=== PATIENT | female | born 1960 | race Caucasian/White ===

== ENCOUNTER 2019-02-02 21:05 | Observation (INO) ==
[2019-02-02] MEDS ORDERED: *HR* Heparin 5,000 UNIT/ML VIAL IVP PRN ×4 (22:13→23:51)
[2019-02-02] MEDS ORDERED: *HR* Heparin 5,000 UNIT/ML VIAL IVP ONE ×2 (22:13→23:51)
[2019-02-02] MEDS ORDERED: Heparin 25,000 UNIT/250 ML D5W 25,000 UNIT/250 ML IV.SOLN IVC SCH ×2 (22:15→23:45)
--- NOTE | 2019-02-02 22:16 | Emergency Department Note ---
Disposition Clinical Impression: Left leg DVT Qualifiers: Affected thrombotic vein of extremity: femoral Chronicity: acute Qualified Code(s): I82.412 - Acute embolism and thrombosis of left femoral vein Disposition: Admitted As Inpatient Referrals: Callum Ronquillo DO [Primary Care Provider] - Forms: ED Satisfaction Letter Time of Disposition: 23:52 General Adult HPI - General Chief complaint: ED Extremity Problem,Nontraumatic Stated complaint: L leg swelling Source: patient Mode of arrival: private vehicle Limitations: no limitations Nursing Notes Reviewed: Yes Vital Signs Reviewed: Yes - History of Present Illness HPI Narrative: Patient is a 59-year-old female with a past medical history including DVT, not currently on anticoagulation presenting with left lower extremity pain and swelling. The patient states for the past 2 weeks, she complains of increased swelling of her left thigh. In the last several days, she states the swelling has been worsening and she has burning and sharp pain from her thigh into her left calf. Pain is constant. She does not know why she gets DVTs. Patient nataly es any chest pain, shortness of breath, abdominal pain, nausea or vomiting, fevers or chills. Denies weakness or numbness or chilling. Pain Scale: 10 - Related Data Previous Rx's Medication Instructions Recorded Metoclopramide [Reglan] 10 mg PO Q6HR PRN #10 tablet 11/22/16 Esomeprazole Magnesium [Nexium] 20 mg PO DAILY #30 capsule. 12/04/17 Venlafaxine HCl [Venlafaxine HCl 75 mg PO DAILY #30 cap 03/21/18 ER] Allergies Allergy/AdvReac Type Severity Reaction Status Date / Time aspirin AdvReac Gastrointestinal Verified 03/21/18 21:12 Upset Cefaclor [From Ceclor] AdvReac Gastrointestinal Verified 03/21/18 21:12 Upset cephalexin [From Keflex] AdvReac Gastrointestinal Verified 03/21/18 21:12 Upset codeine AdvReac Vomiting Verified 03/21/18 21:12 nitrofurantoin AdvReac Gastrointestinal Verified 03/21/18 21:12 Upset prednisone AdvReac Gastrointestinal Verified 03/21/18 21:12 Upset tramadol AdvReac Gastrointestinal Verified 03/21/18 21:12 Upset All systems ED: reviewed and negative except as stated. Review of Systems: As Per HPI Constitutional: Denies: fever, chills ENT ED: Denies: congestion Cardiovascular: Reports: edema. Denies: chest pain, palpitations Respiratory: Denies: cough, dyspnea Gastrointestinal: Denies: abdominal pain, nausea, vomiting Genitourinary: Denies: dysuria Neurological: Denies: headache, weakness, numbness, paresthesias Past Medical History - Past Medical History Attestation: Yes The following information was validated with the patient. Source: patient Medical history: Reports: asthma, DVT, GERD Surgical history: Reports: cholecystectomy, hysterectomy Psychiatric history: Reports: anxiety - Social History Smoking Status: Current every day smoker Smokeless Tobacco Status: No Alcohol use: Reports: none Drug use: Reports: marijuana Physical Exam - General Limitations: no limitations General appearance: alert, in no apparent distress - Head Head exam: atraumatic, normocephalic, normal inspection - Eye Eye exam: Present: normal appearance, EOMI - ENT ENT exam: normal exam, normal oropharynx - Neck Neck exam: Present: normal inspection, trachea midline - Chest Chest inspection: Present: normal inspection, symmetric chest wall rise - Respiratory Respiratory exam: Present: normal lung sounds bilaterally. Absent: respiratory distress, wheezes - Cardiovascular Cardiovascular exam: Present: regular rate, normal rhythm, normal heart sounds - Abdominal Exam Abdominal exam: Present: soft, Non-Tender. Absent: distention - Extremities Exam Extremities exam: Present: normal capillary refill, other (Left thigh swelling, left thigh tenderness to palpation left calf tenderness to palpation, bilateral dorsalis pedis pulses are equal, normal temperature and color bilaterally) - Neurological Exam Neurological exam: Present: alert, oriented X3. Absent: motor sensory deficit - Psychiatric Psychiatric exam: Present: normal affect, normal mood - Skin Skin exam: Present: warm, dry Course Vital Signs Temperature 97.9 F 02/02/19 21:07 Pulse Rate 80 02/02/19 21:07 Respiratory Rate 20 02/02/19 21:07 Blood Pressure 150/76 02/02/19 21:07 O2 Sat by Pulse Oximetry 97 02/02/19 21:07 Temperature 97.9 F 02/02/19 21:07 Pulse Rate 80 02/02/19 21:07 Respiratory Rate 20 02/02/19 21:07 Blood Pressure 150/76 02/02/19 21:07 O2 Sat by Pulse Oximetry 97 02/02/19 21:07 Oxygen Delivery Oxygen Delivery Room Air Medical Decision Making - MDM Narrative Medical decision making narrative: Patient is presenting with left lower extremity pain and swelling. There is tender to palpation in concerning for left lower extremity DVT. No evidence of cellulitis. Afebrile and vitals within normal limits. Patient does have a history of prior DVT and currently not on anticoagulation. She is receiving a Doppler ultrasound at this time. 22:30 Ultrasound is positive for left lower extremity DVT involving the femoral vein. We will start heparin. Lab work has been ordered. Hospitalist paged for admission. X-ray knee also shows joint effusion but no fracture or dislocation. Patient has poor outpatient followup. 23:[address] Duque, hospitalist who accepts admission. - Medical Records Medical records reviewed: Yes I reviewed the patient's medical records. - Lab Data Lab results reviewed: Yes I reviewed the patient's lab results. Result diagrams: 02/02/19 22:56 02/02/19 22:56 Lab Results 02/02/19 02/02/19 02/02/19 Range/Units 22:56 22:56 22:56 WBC 8.5 (4.3-11.1) K/mcL RBC 3.92 (3.82-4.97) M/mcL Hgb 12.6 (11.5-15.4) g/dL Hct 38.1 (35.3-44.9) % MCV 97.2 (83.0-100.0) fL MCH 32.1 (28.0-33.3) pg MCHC 33.1 (31.6-35.5) g/dL RDW 12.8 (11.5-14.5) % Plt Count 187 (140-400) K/mcL MPV 12.5 H (9.4-12.4) fL Immature Gran % 0.2 (0-4) % Seg Neutrophils % 46.6 % Lymphocytes % 39.0 % Monocytes % 11.9 % Eosinophils % 1.6 % Basophils % 0.7 % Neutrophils # 4.0 (1.6-8.9) K/mcL Lymphocytes # 3.3 (0.6-4.6) K/mcL Monocytes # 1.0 (0.0-1.3) K/mcL Eosinophils # 0.1 (0.0-0.6) K/mcL Basophils # 0.1 (0.0-0.2) K/mcL PT 10.6 (9.4-12.1) Seconds INR 0.9 APTT 31.8 (26.0-36.0) Seconds Heparin Anti-Xa, Unfract 0.03 L (0.30-0.70) IU/mL Sodium 136 (136-145) mEq/L Potassium 4.1 (3.5-5.1) mEq/L Chloride 106 (98-107) mEq/L Carbon Dioxide 24 (23-29) mEq/L BUN 16 (6-20) mg/dL Creatinine 1.08 (0.60-1.20) mg/dL Est GFR ( Amer) > 60 (> 60) Est GFR (Non-Af Amer) 52 L (> 60) BUN/Creatinine Ratio 15 (6-26) Glucose 67 L (70-105) mg/dL Calculated Osmolality 281 (280-300) Calcium 9.1 (8.6-10.3) mg/dL Total Bilirubin 0.4 (0.3-1.0) mg/dL AST 24 (13-39) Units/L ALT 18 (7-52) Units/L Alkaline Phosphatase 53 (34-104) Units/L Serum Total Protein 6.9 (6.4-8.9) g/dL Albumin 3.9 (3.5-5.7) g/dL Globulin 3.0 (2.4-3.5) g/dL Albumin/Globulin Ratio 1.3 (1.1-2.2) - Radiology Data Radiology results reviewed: Yes I reviewed the patient's radiology results. Knee X-Ray 02/02/19 21:10 IMPRESSION: 1. Joint effusion 2. No acute bony abnormality 3. Tricompartmental osteoarthritic changes D/ / Zev Damian MD / Zev Damian MD Interpreting Provider: Zev Damian MD
[2019-02-02] MEDS ORDERED: *HR* LORazepam 2 MG/ML VIAL IVP ONE (22:49)
[2019-02-02] MEDS ORDERED: Nicotine 21 MG PATCH.TD24 TD SCH (23:00)
--- NOTE | 2019-02-02 23:00 | Emergency Department Note ---
Disposition Clinical Impression: Left leg DVT Qualifiers: Affected thrombotic vein of extremity: femoral Chronicity: acute Qualified Code(s): I82.412 - Acute embolism and thrombosis of left femoral vein Disposition: Admitted As Inpatient Condition: Good Referrals: Callum Ronquillo DO [Primary Care Provider] - Forms: ED Satisfaction Letter Time of Disposition: 23:00 General Adult HPI - General Chief complaint: ED Extremity Problem,Nontraumatic Stated complaint: L leg swelling Time Seen by Provider: 02/02/19 21:47 Source: patient Mode of arrival: private vehicle Limitations: no limitations - History of Present Illness Pain Scale: 10 - Related Data Previous Rx's Medication Instructions Recorded Metoclopramide [Reglan] 10 mg PO Q6HR PRN #10 tablet 11/22/16 Esomeprazole Magnesium [Nexium] 20 mg PO DAILY #30 capsule.dr 12/04/17 Venlafaxine HCl [Venlafaxine HCl 75 mg PO DAILY #30 cap 03/21/18 ER] Allergies Allergy/AdvReac Type Severity Reaction Status Date / Time aspirin AdvReac Gastrointestinal Verified 03/21/18 21:12 Upset Cefaclor [From Ceclor] AdvReac Gastrointestinal Verified 03/21/18 21:12 Upset cephalexin [From Keflex] AdvReac Gastrointestinal Verified 03/21/18 21:12 Upset codeine AdvReac Vomiting Verified 03/21/18 21:12 nitrofurantoin AdvReac Gastrointestinal Verified 03/21/18 21:12 Upset prednisone AdvReac Gastrointestinal Verified 03/21/18 21:12 Upset tramadol AdvReac Gastrointestinal Verified 03/21/18 21:12 Upset Constitutional: Denies: fever, chills ENT ED: Denies: congestion Cardiovascular: Reports: edema. Denies: chest pain, palpitations Respiratory: Denies: cough, dyspnea Gastrointestinal: Denies: abdominal pain, nausea, vomiting Genitourinary: Denies: dysuria Neurological: Denies: headache, weakness, numbness, paresthesias Past Medical History - Past Medical History Medical history: Reports: asthma, DVT, GERD Surgical history: Reports: cholecystectomy, hysterectomy Psychiatric history: Reports: anxiety - Social History Smoking Status: Current every day smoker Smokeless Tobacco Status: No Alcohol use: Reports: none Drug use: Reports: marijuana Physical Exam - General Limitations: no limitations General appearance: alert, in no apparent distress Course Vital Signs Temperature 97.9 F 02/02/19 21:07 Pulse Rate 80 02/02/19 21:07 Respiratory Rate 20 02/02/19 21:07 Blood Pressure 150/76 02/02/19 21:07 O2 Sat by Pulse Oximetry 97 02/02/19 21:07 Temperature 97.9 F 02/02/19 21:07 Pulse Rate 80 02/02/19 21:07 Respiratory Rate 20 02/02/19 21:07 Blood Pressure 150/76 02/02/19 21:07 O2 Sat by Pulse Oximetry 97 02/02/19 21:07 Oxygen Delivery Oxygen Delivery Room Air Attestation Statement - Attestation Attestation: I reviewed the residents documentation and agree with the residents assessment and plan of care. I have personally had face to face time with the patient. (Brief History, Brief Exam, and MDM) I personally supervised and was present for the ludwig/critical portions of the following procedures completed by the resident: (add procedures performed here). 59 year old female presents to the ED with complaints of Left leg swelling she has a history of DVTs and appears to have a partial left common femoral DVT. Heprin therapy started and will admit to medicine.
[2019-02-02 23:16] LABS: Basophils # 0.1 K/mcL (0.0-0.2); Basophils % 0.7 %; Eosinophils # 0.1 K/mcL (0.0-0.6); Eosinophils % 1.6 %; Hematocrit 38.1 % (35.3-44.9); Hemoglobin 12.6 g/dL (11.5-15.4); Immature Granulocytes % 0.2 % (0-4); Lymphocytes # 3.3 K/mcL (0.6-4.6); Mean Corpuscular HGB Conc 33.1 g/dL (31.6-35.5); Mean Corpuscular Hemoglobin 32.1 pg (28.0-33.3); Mean Corpuscular Volume 97.2 fL (83.0-100.0); Mean Platelet Volume 12.5 fL (9.4-12.4); Monocytes % 11.9 %; Platelet Count 187 K/mcL (140-400); Red Blood Count 3.92 M/mcL (3.82-4.97); Red Cell Distribution Width 12.8 % (11.5-14.5); Segmented Neutrophils % 46.6 %; White Blood Count 8.5 K/mcL (4.3-11.1)
[2019-02-02 23:28] LABS: Heparin anti-factor XA UFH 0.03 IU/mL (0.30-0.70); INR 0.9; Prothrombin Time 10.6 Seconds (9.4-12.1)
[2019-02-02 23:30] LABS: Activated Partial Thrombo Time 31.8 Seconds (26.0-36.0)
[2019-02-02] MEDS ORDERED: *HR* Enoxaparin 80 MG/0.8 ML SYRINGE SQ STA (23:34)
[2019-02-02 23:35] LABS: Alanine Aminotransferase 18 Units/L (7-52); Albumin 3.9 g/dL (3.5-5.7); Albumin/Globulin Ratio 1.3 (1.1-2.2); Alkaline Phosphatase 53 Units/L (34-104); Aspartate Amino Transferase 24 Units/L (13-39); BUN/Creatinine Ratio 15 (6-26); Bilirubin,Total 0.4 mg/dL (0.3-1.0); Blood Urea Nitrogen 16 mg/dL (6-20); Calcium 9.1 mg/dL (8.6-10.3); Carbon Dioxide 24 mEq/L (23-29); Chloride 106 mEq/L (98-107); Glucose 67 mg/dL (70-105); Osmolality,Calculated 281 (280-300); Potassium 4.1 mEq/L (3.5-5.1); Sodium 136 mEq/L (136-145); Total Protein 6.9 g/dL (6.4-8.9); eGFR For African Americans > 60 (> 60); eGFR For Non-African Americans 52 (> 60)
[2019-02-03] MEDS ORDERED: Acetaminophen 325 MG TABLET PO PRN (02:22)
[2019-02-03] MEDS ORDERED: Naloxone 0.4 MG/ML INJ IVP PRN (02:22)
[2019-02-03] MEDS ORDERED: Ondansetron 4 MG/2 ML VIAL IVP PRN (02:22)
[2019-02-03] MEDS ORDERED: traMADol 50 MG TABLET PO PRN (02:22)
--- NOTE | 2019-02-03 02:42 | Internal Med History&Physical ---
Date of Encounter: 02/03/19 Time of Encounter: 01:45 Internal Medicine - H&P: HPI Chief complaint: Left leg pain Admitted From: Emergency Dept Plans for Post Hospital Care: Home History of present illness: Ms. Cheung is a 59 year old female w/PMH of previous DVT, asthma, GERD, and anxiety presents from the ED w/CC of left leg pain. Patient reports that the pain started a couple weeks ago w/increasing swelling in her left thigh. Reports sharp, burning pain from thigh to her calf over the past 48 hours. Reports pain as constant. Aggravating factors: none. Alleviating factors: none. Patient denies hx of atrial fibrillation or being on any anticoagulants currently. Patient denies recent illness, fever, chills, nausea, vomiting, headache, changes in vision, unusual bleeding, chest pain, shortness of breath, abdominal pain, diarrhea, constipation, numbness, tingling, dizziness, lightheadedness, pre-syncope, or syncope. Past Med Surg Social Fam HX - Past Medical History Source: patient, old records reviewed Medical history: asthma, DVT, GERD Psychiatric history: anxiety - Past Surgical History Surgical History: cholecystectomy, hysterectomy - Social History Smoking Status: Current every day smoker Packs per day: 1 PPD Smokeless Tobacco Status: No Alcohol use: none Drug use: marijuana Current living situation: Home, With Family Activity Level: Independent ambulation Recent Out of Country Travel Within the Last 8 Weeks: No Exposure or Possible Exposure to Illness During Travel: No - Family History Father Race: Family Member Ethnicity: Non- Living Status: Still Living Hx Family Cardiac Disorders: Yes (CAD) Mother Race: Family Member Ethnicity: Non- Living Status: Still Living Hx Family Musculoskeletal Disorders: Yes (Back pain) Brother Race: Family Member Ethnicity: Non- Living Status: Age at : 26 Cause of : MVA Sister Race: Family Member Ethnicity: Non- Living Status: Still Living Hx Family Endocrine Disorder: Yes (DM) Internal Medicine - H&P: Meds Esomeprazole Magnesium [Nexium] 20 mg PO DAILY #30 capsule. 12/04/17 [Rx] Venlafaxine HCl [Venlafaxine HCl ER] 75 mg PO DAILY #30 cap 03/21/18 [Rx] Benzonatate 100 mg PO TID 02/02/19 [History] Estrogens, Conjugated [Premarin] 1.25 mg PO DAILY 02/02/19 [History] LORazepam [Ativan] 1 mg PO BID 02/02/19 [History] Montelukast Sodium [Singulair] 10 mg PO DAILY 02/02/19 [History] Nizatidine 150 mg PO DAILY 02/02/19 [History] Pantoprazole Sodium 40 mg PO DAILY 02/02/19 [History] Tizanidine HCl [Zanaflex] 4 mg PO BID 02/02/19 [History] Allergy/AdvReac Type Severity Reaction Status Date / Time aspirin AdvReac Gastrointestinal Verified 03/21/18 21:12 Upset Cefaclor [From Ceclor] AdvReac Gastrointestinal Verified 03/21/18 21:12 Upset cephalexin [From Keflex] AdvReac Gastrointestinal Verified 03/21/18 21:12 Upset codeine AdvReac Vomiting Verified 03/21/18 21:12 nitrofurantoin AdvReac Gastrointestinal Verified 03/21/18 21:12 Upset prednisone AdvReac Gastrointestinal Verified 03/21/18 21:12 Upset tramadol AdvReac Gastrointestinal Verified 03/21/18 21:12 Upset All Systems PM: A 10-system review of systems was performed and is negative for pertinent findings except as documented above in the HPI. - Constitutional Constitutional: no chills, no fever(s), no night sweats - EENT Eyes: no change in vision, no discharge, no pain, no photophobia Ears: no ear discharge, no ear pain, no tinnitus Nose, mouth and throat: no dysphagia, no nasal discharge, no neck pain, no sore throat - Breasts Breasts: as per HPI - Cardiovascular Cardiovascular ROS IM: no chest pain, no diaphoresis, no dyspnea, no lightheadedness, no palpitations, no syncope - Respiratory Respiratory: no cough, no dyspnea, no wheezing, no excessive phlegm production - Gastrointestinal Gastrointestinal: as per HPI, heartburn, no abdominal pain, no diarrhea, no hematemesis, no hematochezia, no melena, no nausea, no vomiting - Genitourinary Genitourinary: no change in urinary stream, no dysuria, no flank pain, no hematuria Menstruation: as per HPI, post hysterectomy - Musculoskeletal Musculoskeletal ROS IM: as per HPI, other (LLE pain from thigh to calf), no numb ness, no tingling - Integumentary Integumentary IM: no rash, no unusual bruising - Neurological Neurological ROS: no confusion, no convulsions, no focal weakness, no numbness, no tingling, no tremor(s) - Psychiatric Psychiatric: as per HPI, anxiety - Endocrine Endocrine IM: as per HPI - Hematologic/Lymphatic Hematologic/Lymphatic: no easy bruising - Allergic/Immunologic Allergic/Immunologic: as per HPI - Constitutional Vitals: Temp Pulse Resp BP Pulse Ox 97.7 F 64 20 122/76 100 02/03/19 00:49 02/03/19 00:49 02/03/19 00:49 02/03/19 00:49 02/03/19 00:49 General appearance: Present: cooperative, mild distress (Pain in LLE), A&O X 3, pleasant, answers questions appropriately Exam: Patient examined at bedside. Reports pain in LLE from thigh to calf. Denies any other sx or complaints on examination. VS: 97.7F temp, HR 64, RR 20, BP 122/76, SPO2 100% on room air. - Head Head exam: Present: atraumatic, normocephalic - Eye Eye exam: Present: PERRL, conjuntiva pink, sclera anicteric Pupils: Present: PERRL - ENT ENT exam: Present: normal exam - Neck Neck exam general surgery: Present: normal inspection, supple, trachea midline. Absent: lymphadenopathy - Respiratory Respiratory exam: Present: CTAB. Absent: accessory muscle use, rales, rhonchi, wheezes - Cardiovascular Cardiovascular exam: Present: RRR, +S1, +S2. Absent: diastolic murmur, gallop, rubs, systolic murmur - GI/Abdominal GI/Abdominal exam: Present: normal bowel sounds, soft, no peritoneal signs. Absent: distended, tenderness - Rectal Rectal exam: Present: deferred - Additional comments: exam deferred. - Extremities Exam Extremities exam: Present: calf tenderness (LLE), tenderness (LLE), warm, radial pulses palpable and symmetrical. Absent: cyanotic, pedal edema - Back Exam Back exam: Present: normal inspection - Neurological Exam Neurological exam: Present: alert, CN II-XII intact, oriented X3, no focal deficits. Absent: pronater drift, facial droop, speech deficit - Psychiatric Psychiatric exam: Present: anxious - Skin Skin exam: Present: dry, intact Internal Med - H&P Results - Labs CBC & Chem 7: 02/02/19 22:56 02/02/19 22:56 Labs: Short CBC 02/02/19 Range/Units 22:56 WBC 8.5 (4.3-11.1) K/mcL Hgb 12.6 (11.5-15.4) g/dL Hct 38.1 (35.3-44.9) % Plt Count 187 (140-400) K/mcL Neutrophils # 4.0 (1.6-8.9) K/mcL BMP 02/02/19 22:56 Sodium 136 Potassium 4.1 Chloride 106 Carbon Dioxide 24 BUN 16 Creatinine 1.08 Glucose 67 L Calcium 9.1 Liver Function 02/02/19 Range/Units 22:56 Total Bilirubin 0.4 (0.3-1.0) mg/dL AST 24 (13-39) Units/L ALT 18 (7-52) Units/L Alkaline Phosphatase 53 (34-104) Units/L Albumin 3.9 (3.5-5.7) g/dL - Impressions ITS Impressions Knee X-Ray 02/02/19 21:10 IMPRESSION: 1. Joint effusion 2. No acute bony abnormality 3. Tricompartmental osteoarthritic changes D/ / Zev Damian MD / Zev Damian MD Interpreting Provider: Zev Damian MD - Diagnostic Studies Other Images Additional comments: Impressions Knee X-Ray 02/02/19 21:10 IMPRESSION: 1. Joint effusion 2. No acute bony abnormality 3. Tricompartmental osteoarthritic changes D/ / Zev Damian MD / Zev Damian MD Interpreting Provider: Zev Damian MD Venous US Additional comments: Impressions Татьяна Cheung A Female : 1960 MedRec# [id number] 02/02/19 22:07 - Vascular Preliminary by MargaretXiangLarissa K Acct Num: [id number] : 1960 Patient Age: 59 Venous Duplex Lower Left Extremity Patient appears to be positive for partial DVT and negative for SVT. Initialized on 02/02/19 22:07 - END OF NOTE - Assessment and Plan (1) Left leg DVT Current Visit: Yes Status: Acute Assessment and plan: Acute left leg DVT. Patient reports that the pain started a couple weeks ago w/increasing swelling in her left thigh. Reports sharp, burning pain from thigh to her calf over the past 48 hours. Reports pain as constant. Aggravating factors: none. Alleviating factors: none. Patient denies hx of atrial fibrillation or being on any anticoagulants currently. Hx of previous DVT. No hx of clotting disorders. Vascular US shows positive for partial DVT and negative for SVT and LLE. Patient given weight-based Lovenox in ED. Weight-based Lovenox ordered Q12HR. Discussed patient w/Higinio in Pharmacy d/t current renal dysfunction for renal adjustments on Lovenox of which there are none currently. Consult to Hematology Oncology ordered but not confirmed d/t time of night placed. A.M. Hospitalist to follow-up and confirm consult. Heparin anti-factor XA ordered. Factor V Leiden ordered. Patient is high risk for further morbidity and complication d/t current DVT in left femoral vein requiring urgent anticoagulation and monitoring, hx of previous DVT, current tobacco abuse, and risk factors. Observation. Qualifiers: Affected thrombotic vein of extremity: femoral Chronicity: acute Qualified Code(s): I82.412 - Acute embolism and thrombosis of left femoral vein (2) Asthma Current Visit: Yes Status: Chronic Assessment and plan: Hx of chronic asthma. Continue pts. Singulair. Supplemental O2 w/titration and SpO2 monitoring PRN. Qualifiers: Asthma severity: mild Asthma persistence: intermittent Asthma complication type: uncomplicated Qualified Code(s): J45.20 - Mild intermittent asthma, uncomplicated (3) GERD (gastroesophageal reflux disease) Current Visit: Yes Status: Chronic Assessment and plan: Hx of chronic GERD. Ranitidine 75 mg by mouth twice a day. Zofran 4 mg IVP every 8 when necessary for nausea vomiting. Qualifiers: Esophagitis presence: esophagitis presence not specified Qualified Code(s): K21.9 - Gastro-esophageal reflux disease without esophagitis (4) Tobacco abuse Current Visit: Yes Status: Chronic Assessment and plan: Hx of chronic tobacco abuse. Patient reports smoking 1 PPD. Pt. counseled on smoking cessation. 21 mg nicotine patch ordered. (5) Tobacco abuse counseling Current Visit: Yes Status: Acute Assessment and plan: Patient counseled on importance of smoking cessation and benefits regarding her current vascular compromise >10 minutes. Patient requests 21 mg nicotine patch. (6) DVT prophylaxis Current Visit: Yes Status: Acute Assessment and plan: Weight-based Lovenox Q12HR for current DVT in LLE. Check Xa factor. Monitor pt. for signs of bleeding. - Time Spent With Patient Total time spent is greater than 50% in coordination of care (as documented) at patient's floor/unit and/or counseling patient: Greater than 35 minutes
[2019-02-03 03:20] LABS: Hemoglobin 12.8 g/dL (11.5-15.4); Mean Corpuscular HGB Conc 33.7 g/dL (31.6-35.5); Mean Corpuscular Hemoglobin 33.1 pg (28.0-33.3); Mean Corpuscular Volume 98.2 fL (83.0-100.0); Mean Platelet Volume 13.1 fL (9.4-12.4); Platelet Count 190 K/mcL (140-400); Red Blood Count 3.87 M/mcL (3.82-4.97); Red Cell Distribution Width 12.7 % (11.5-14.5)
[2019-02-03 03:41] LABS: BUN/Creatinine Ratio 15 (6-26); Blood Urea Nitrogen 15 mg/dL (6-20); Calcium 8.8 mg/dL (8.6-10.3); Carbon Dioxide 23 mEq/L (23-29); Chloride 105 mEq/L (98-107); Chol/HDL Ratio 4.6 (0-4.9); Cholesterol 269 mg/dL (< 200); Glucose 91 mg/dL (70-105); HDL Cholesterol 58 mg/dL (40-59); LDL Cholesterol,Calculated 193 mg/dL (0-99); Magnesium 2.2 mg/dL (1.6-2.6); Osmolality,Calculated 280 (280-300); Potassium 4.1 mEq/L (3.5-5.1); Sodium 135 mEq/L (136-145); Triglycerides 88 mg/dL (< 150); eGFR For African Americans > 60 (> 60); eGFR For Non-African Americans 55 (> 60)
[2019-02-03] MEDS ORDERED: Isovue-370 500 ML BOTTLE IVP ONE (07:59)
[2019-02-03] MEDS ORDERED: *HR* LORazepam 1 MG TABLET PO PRN (08:24)
[2019-02-03] MEDS ORDERED: tiZANidine 4 MG TABLET PO SCH (09:00)
[2019-02-03] MEDS ORDERED: Tiotropium 18 MCG inhalation IH SCH (10:00)
[2019-02-03] MEDS ORDERED: *HR* Enoxaparin 80 MG/0.8 ML SYRINGE SQ SCH (11:00)
[2019-02-03 14:12] VITALS: BP 114/71
--- NOTE | 2019-02-03 14:13 | Electrocardiograph Report ---
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
--- NOTE | 2019-02-03 14:25 | Discharge Summary ---
<Trina Leroy - Last Filed: 02/03/19 18:41> Orders not resulted at time of discharge: Pending orders 02/03/19 09:54 Factor V Leiden Routine 02/03/19 15:44 Cell Count w Diff,Synovial Fl [BF] Stat Culture,Body Fluid [RM] Stat Synovial Fluid Crystals [BF] Stat Date of Encounter: 02/03/19 - Discharge Diagnosis (1) Left leg DVT Status: Acute Qualifiers: Affected thrombotic vein of extremity: femoral Chronicity: acute Qualified Code(s): I82.412 - Acute embolism and thrombosis of left femoral vein (2) Asthma Status: Chronic Qualifiers: Asthma severity: mild Asthma persistence: intermittent Asthma complication type: uncomplicated Qualified Code(s): J45.20 - Mild intermittent asthma, uncomplicated (3) GERD (gastroesophageal reflux disease) Status: Chronic Qualifiers: Esophagitis presence: esophagitis presence not specified Qualified Code(s): K21.9 - Gastro-esophageal reflux disease without esophagitis (4) DVT prophylaxis Status: Acute (5) Tobacco abuse Status: Chronic (6) Tobacco abuse counseling Status: Acute Hospital course: Ms. Cheung is a 59 year old female - Time Spent with Patient Total time spent providing and/or coordinating discharge services: - Discharge Medications Prescriptions: New Apixaban [Eliquis] 5 mg PO BID #60 tablet Apixaban [Eliquis] 10 mg PO BID #14 tablet Continued RX: Esomeprazole Magnesium [Nexium] 20 mg PO DAILY #30 capsule. RX: Venlafaxine HCl [Venlafaxine HCl ER] 75 mg PO DAILY #30 cap RX: Tizanidine HCl [Zanaflex] 4 mg PO BID Benzonatate 100 mg PO TID Pantoprazole Sodium 40 mg PO DAILY RX: Montelukast Sodium [Singulair] 10 mg PO DAILY RX: Nizatidine 150 mg PO DAILY RX: LORazepam [Ativan] 1 mg PO BID Discontinued Estrogens, Conjugated [Premarin] 1.25 mg PO DAILY Home Medications: RX: Esomeprazole Magnesium [Nexium] 20 mg PO DAILY #30 capsule. 12/04/17 [Rx] RX: Venlafaxine HCl [Venlafaxine HCl ER] 75 mg PO DAILY #30 cap 03/21/18 [Rx] Benzonatate 100 mg PO TID 02/02/19 [History] Pantoprazole Sodium 40 mg PO DAILY 02/02/19 [History] RX: LORazepam [Ativan] 1 mg PO BID 02/02/19 [History] RX: Montelukast Sodium [Singulair] 10 mg PO DAILY 02/02/19 [History] RX: Nizatidine 150 mg PO DAILY 02/02/19 [History] RX: Tizanidine HCl [Zanaflex] 4 mg PO BID 02/02/19 [History] Apixaban [Eliquis] 5 mg PO BID #60 tablet 02/03/19 [Rx] Apixaban [Eliquis] 10 mg PO BID #14 tablet 02/03/19 [Rx] Allergies/Adverse Reactions: Allergy/AdvReac Type Severity Reaction Status Date / Time aspirin AdvReac Gastrointestinal Verified 03/21/18 21:12 Upset Cefaclor [From Ceclor] AdvReac Gastrointestinal Verified 03/21/18 21:12 Upset cephalexin [From Keflex] AdvReac Gastrointestinal Verified 03/21/18 21:12 Upset codeine AdvReac Vomiting Verified 03/21/18 21:12 nitrofurantoin AdvReac Gastrointestinal Verified 03/21/18 21:12 Upset prednisone AdvReac Gastrointestinal Verified 03/21/18 21:12 Upset tramadol AdvReac Gastrointestinal Verified 03/21/18 21:12 Upset Date of admission: 02/03/19 00:17 Primary care physician: Callum Ronquillo - Constitutional Vitals: Temp Pulse Resp BP Pulse Ox 97.6 F 61 15 114/71 99 02/03/19 14:07 02/03/19 14:07 02/03/19 14:07 02/03/19 14:07 02/03/19 14:07 - Patient Status Disposition: Home, Self-Care Condition: Fair - Discharge Instructions Follow Up With: Rae Duenas CNP [Advanced Practice Nurse] - 02/06/19 9:45 am - Attending Attestation I have seen and independently assessed this patient and I agree with plan as documented Exam Gen. NAD CVS. S1 S2 WNL Resp. CTAB GI. 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 GCS 15 Plan Acute DVT of lower extremity. CTA chest showed no PE. Started on sc lovenox. Transitioned to eliquis. Will complete eliquis 10mg po BID for 7 days and 5mg po BID subseqeuntly. Outpatient f/u with heme onc <uLcy Grove - Last Filed: 02/03/19 20:16> - NOTES TO OUTPATIENT PROVIDER Notes to Outpatient Provider: Patient admitted for left lower extremitiy partial DVT on doppler. Discontinued Premarin and recommended smoking cessation. Factor V Leiden ordered, not yet resulted. Started on Eliquis. LDL 193 recommend considering statin therapy. Follow up with PCP in 3-5 days to discuss anticoagulation duration and postmenopausal symtom managment. Orders not resulted at time of discharge: Pending orders 02/03/19 09:54 Factor V Leiden Routine 02/04/19 04:00 Basic Metabolic Panel AM 0400 Complete Blood Count w/o Diff [HEME] AM 0400 Date of Encounter: 02/03/19 Time of Encounter: 13:15 - Discharge Diagnosis (1) Left leg DVT Priority: Primary Status: Acute Qualifiers: Affected thrombotic vein of extremity: femoral Chronicity: acute Qualified Code(s): I82.412 - Acute embolism and thrombosis of left femoral vein (2) Asthma Priority: Secondary Status: Chronic Qualifiers: Asthma severity: mild Asthma persistence: intermittent Asthma complication type: uncomplicated Qualified Code(s): J45.20 - Mild intermittent asthma, uncomplicated (3) GERD (gastroesophageal reflux disease) Priority: Secondary Status: Chronic Qualifiers: Esophagitis presence: esophagitis presence not specified Qualified Code(s): K21.9 - Gastro-esophageal reflux disease without esophagitis (4) Tobacco abuse Priority: Secondary Status: Chronic Hospital course: Ms. Cheung is a 59 year old female with a history of previous DVT not on anticoagulation, hot flashes on Premarin, and current daily smoker who presented to the ED on 02/02/19 with complaint of left lower extremity pain and swelling for the past 2 weeks. Venous Doppler showed a partially occlusive thrombus in the left common femoral vein. CTA of chest showed no PE. Vitals were stable on presentation and throughout admission. CBC and CMP/BMP were unremarkable. Lipid panel with total cholesterol 269, LDL 193, HDL 58. Left knee x-ray showed joint effusion with tricompartmental osteoarthritic changes. Left knee arthrocentesis was performed today with removal of approximately 9 mL's of straw colored synovial fluid, fluid analysis and culture pending. Premarin was discontinued and smoking cessation recommended. Patient started on Eliquis on discharge. Patient to follow up with PCP to further discuss anticoagulation duration, postmenopausal symptom managment, and possible statin therapy. Discharge discussed with: patient, family Time spent discussing smoking cessation with patient: 3 to 10 minutes - Time Spent with Patient Total time spent providing and/or coordinating discharge services: Date of admission: 02/03/19 00:17 Primary care physician: Callum Ronquillo Discharging clinician: Lcuy Grove Anticipated date of discharge: 02/03/19 - Constitutional Vitals: Temp Pulse Resp BP Pulse Ox 97.6 F 61 15 114/71 99 02/03/19 14:07 02/03/19 14:07 02/03/19 14:07 02/03/19 14:07 02/03/19 14:07 Exam: Gen: Vitals noted. No acute distress. Eyes: anicteric sclerae, moist conjunctivae HENT: Atraumatic; oral mucosa moist Cardiac: RRR, no murmur, +S1/S2 Pulmonary: CTA bilaterally, no wheezes, rales or rhonchi, equal chest expansion Abdomen: soft, nontender, no guarding MSK: ROM intact Extremities: LLE with mild swelling and calf tenderness as well as tenderness behind the knee. No warmth or erythema noted. Mild swelling also noted in the left knee, without signs of infection or drainage. Skin: Normal temperature, turgor and texture; no rashes noted Neuro: moves all extremities, no focal deficits. Psych: Appropriate mood and behavior. A&Ox3 - Patient Status Functional capacity at discharge: independent ambulation Overall status at discharge: patient is progressing back to baseline - Diet and Activity Activity: increase activity as tolerated Diet: advance to your usual diet
[2019-02-03] MEDS ORDERED: Lidocaine 1% 20 ML MDV ID ONE (14:47)
[2019-02-03 16:01] LABS: Source,Synovial Fluid left knee
--- NOTE | 2019-02-03 16:38 | Procedure Note ---
Date of procedure: 02/03/19 Pre-op diagnosis: Left knee effusion Post-op diagnosis: same Procedure: After properly identifying the patient and obtaining consent the patients' left knee was prepped in normal sterile fashion. After a time-out was performed noting the paptients' name and type of procedure to be performed. 1% lidocaine without epinephrine was used to anesthesize the epidermal and dermal layers. A #19 gauge needle was used to decompress the cyst cavity. Approximatley 9 ml of staw colored synovial fluid was drained from left medial inferior joint space. Instrument counts were correct and the aspiration site was covered with a band- aid. Anesthesia: local Surgeon: Lucy Grove Was there an training and development assistant present: Yes Clinical Trial Coordinator: Munir Lenz Estimated blood loss (cc): 1 Specimen: synovial fluid Condition: stable Disposition: floor
[2019-02-03 17:18] LABS: Appearance,Synovial Fluid Cloudy (Clear-Hazy); Color,Synovial Fluid Straw (Straw)
[2019-02-03] MEDS ORDERED: Mirtazapine 15 MG TABLET PO SCH (21:00)
[2019-02-06 14:59] LABS: FACV Specimen WHOLE BLOOD
[2019-02-06 15:09] LABS: Fac V Leiden R506Q Mut Result NEGATIVE
== END 2019-02-03 16:46 | disposition home or self-care (01) ==
LOC: EMEROOARM 21:05 → 3ANU 21:05
PROVIDERS: ADMIT Internal Medicine; ATTEND Internal Medicine